=== PATIENT | female | born 1965 | race Caucasian/White ===

== ENCOUNTER 2025-09-27 12:46 | Emergency (ER) | payer OTHER, SELFPAY ==
[2025-09-27 13:05] VITALS: BP 165/95; PULSE 66; RESP 16; TEMP 36.3; O2SAT 100
--- NOTE | 2025-09-27 13:08 | XR_ITS ---
WS: [id number] Portable AP upright chest, 09/27/2025 Clinical Data: Hypertension Comparison: None. Findings: No nodules, masses or effusions are seen. The heart is normal. The pulmonary vascularity is not increased. No pneumonia or pneumothorax is seen. Monitor leads are on the chest wall. XR/XR chest 1V portable [id number] Impression: Negative chest.
--- NOTE | 2025-09-27 13:08 | ECG_ITS ---
[facility] Date: 2025-09-27 Pat Name: Ilda Xiao Department: Room: Gender: Female [employer]ger: : 1965 Requested By: Dante Hatch Order Number: [id number] Reading MD: ELLA NAJERA Measurements Intervals Orr Rate: 61 P: 70 MN: 171 QRS: 74 QRSD: 73 T: 61 QT: 414 QTc: 419 Interpretive Statements SINUS RHYTHM SEPTAL MYOCARDIAL INFARCTION , OF INDETERMINATE AGE [40+ ms Q WAVE IN V1/V2] No previous ECG available for comparison Electronically Signed On 09-28-2025 11:57:07 DATA PROCESSING CONSULTANT by ELLA NAJERA [id number]
--- NOTE | 2025-09-27 13:08 | W.ED.GENADLT ---
HPI - General Adult General: Chief complaint: General Medical Stated complaint: high bp Time Seen by Provider: 09/27/25 13:07 History of Present Illness: 60-year-old female presents emergency room complaint of elevated blood pressure with home monitoring intermittently for the last 2 weeks. She has been out of her blood pressure medications for over a month. No known history of coronary artery disease. She recently moved here and has not been able to establish with anyone she is trying get established at the [place] they are directed here for refill of medications today Associated symptoms: Deny chest pain, dyspnea or rash Related Data Home Medications ?Medication ?Instructions ?Recorded ?Confirmed buspirone 10 mg tablet 10 mg PO BID 09/27/25 09/27/25 venlafaxine 37.5 mg 37.5 mg PO DAILY 09/27/25 09/27/25 capsule,extended release 24 hr (Effexor XR) Previous Rx's ?Medication ?Instructions ?Recorded lisinopril 10 mg tablet 10 mg PO DAILY #30 tabs 09/27/25 Allergies Allergy/AdvReac Type Severity Reaction Status Date / Time codeine Allergy Unknown Verified 09/27/25 13:07 Penicillins Allergy Unknown Verified 09/27/25 13:07 Sulfa (Sulfonamide Allergy Unknown Verified 09/27/25 13:07 Antibiotics) Review of Systems Const: Denies: fever(s) or chills Card: Denies: chest pain Resp: Denies: dyspnea GI: Denies: abdominal pain : Denies: dysuria, urinary frequency or urinary urgency Musc: Denies: neck pain or back pain Skin/Breast: Denies: rash Physical Exam Const: GENERAL APPEARANCE: cooperative ORIENTATION/CONSCIOUSNESS: Yes awake, Yes oriented to person, Yes oriented to place and Yes oriented to time HENMT: COMMON NORMALS: normocephalic, atraumatic and hearing grossly normal bilaterally HEAD & SCALP: normocephalic and atraumatic Resp: COMMON NORMALS: normal respiratory effort, No retractions, No use of accessory muscles and clear to auscultation bilaterally AUSCULTATION: clear to auscultation bilaterally Cardio: COMMON NORMALS: regular rate, regular rhythm and No murmurs present (Cardio) RATE: regular rate RHYTHM: regular rhythm GI: COMMON NORMALS: Soft to palpation and No hepatosplenomegaly present AUSCULTATION: Yes normoactive bowel sounds PALPATION: Yes Soft to palpation, No Tenderness to palpation present (GI), No Guarding due to palpation present (GI) and Yes No hepatosplenomegaly present Extremity: COMMON NORMALS: normal to inspection, capillary refill normal, no clubbing, cyanosis or edema, no calf tenderness and no pedal edema Neuro: SENSORIUM/ORIENTATION: Yes oriented to person, Yes oriented to place and Yes oriented to time OTHER: No facial asymmetry no ataxia strength equal bilaterally no focal neurologic deficits Skin: COMMON NORMALS: no rashes or lesions noted GENERAL SKIN EXAM: no rashes or lesions noted Course Vital Signs: Vital signs: Vital Signs Temperature 97.3 F L 09/27/25 13:05 Pulse Rate 71 09/27/25 15:07 Respiratory Rate 18 09/27/25 15:07 Blood Pressure 158/98 09/27/25 15:07 Pulse Oximetry 97 09/27/25 15:07 Oxygen Delivery Me thod Room Air 09/27/25 15:07 MDM - General Adult Medical Decision Making Medical decision making Social determinants: None I reviewed the patient's medical record. I reviewed the patient's current home meds. Alternate historians: None Differential diagnosis: Essential hypertension versus hypertensive urgency Lab Review: CBC and CMP no significant abnormalities Imaging:Chest x-ray no acute infiltrates no effusions no increased pulmonary vasculature Assessment of risk Level of risk: Moderate Hospitalization considerations: May require hospitalization blood pressure did not respond to medications in the department or has significant abnormal labs Reexamination: Stable improved Assessment and plan: Discharge patient home on lisinopril 10 mg daily discussed with patient she likely will need further medication should follow-up with her doctor as soon as she is able to reevaluate and adjust dosage as appropriate return emergency room for any further problems Lab Data 09/27/25 13:14 09/27/25 13:14 Radiology Impressions Chest X-Ray 09/27/25 13:08 Impression: Negative chest. Laboratory Results WBC 4.83 10^3/uL (3.29-11.43) 09/27/25 13:14 RBC 4.11 10^6/uL (3.85-5.65) 09/27/25 13:14 Hgb 13.40 g/dL (11.27-16.99) 09/27/25 13:14 Hct 39.2 % (36-47) 09/27/25 13:14 MCV 95.4 fl (85-98) 09/27/25 13:14 MCH 32.6 pg (27-33) 09/27/25 13:14 MCHC 34.2 g/dL (30-55) 09/27/25 13:14 RDW 11.9 % (12.1-15.1) L 09/27/25 13:14 Plt Count 247 10^3/cmm (157-399) 09/27/25 13:14 MPV 11.0 fL (7.4-10.4) H 09/27/25 13:14 Neut % (Auto) 57.0 % 09/27/25 13:14 Lymph % (Auto) 33.1 % 09/27/25 13:14 Dane % (Auto) 7.7 % 09/27/25 13:14 Eos % (Auto) 1.4 % 09/27/25 13:14 Baso % (Auto) 0.6 % 09/27/25 13:14 Neut # (Auto) 2.75 10^3/uL (1.8-7.7) 09/27/25 13:14 Lymph # (Auto) 1.6 10^3/uL (0.8-4.8) 09/27/25 13:14 Dane # (Auto) 0.4 10^3/uL (0.2-0.9) 09/27/25 13:14 Eos # (Auto) 0.1 10^3/uL (0.0-0.8) 09/27/25 13:14 Baso # (Auto) 0.0 10^3/uL (0.0-0.1) 09/27/25 13:14 Nucleated RBC % (auto) 0 % 09/27/25 13:14 Nucleated RBCs # 0.0 /100WBC 09/27/25 13:14 Sodium 139 mmol/L (136-145) 09/27/25 13:14 Potassium 4.0 mmol/L (3.5-5.1) 09/27/25 13:14 Chloride 101 mmol/L (98-107) 09/27/25 13:14 Carbon Dioxide 27 mmol/L (22-29) 09/27/25 13:14 Anion Gap 15.0 (5-19) 09/27/25 13:14 BUN 10 mg/dL (6-20) 09/27/25 13:14 Creatinine 0.6 mg/dL (0.5-0.9) 09/27/25 13:14 GFR Calculation 102.7 mL/min (90-130) 09/27/25 13:14 Glucose 95 mg/dL (65-115) 09/27/25 13:14 Calculated Osmolality 287 mOsm/kg (285-295) 09/27/25 13:14 Calcium 9.1 mg/dL (8.5-10.5) 09/27/25 13:14 Total Bilirubin 0.9 mg/dL (0.15-1.2) 09/27/25 13:14 AST 25 U/L (0-32) 09/27/25 13:14 ALT 17 U/L (0-33) 09/27/25 13:14 Alkaline Phosphatase 92 U/L (35-105) 09/27/25 13:14 Total Protein 7.2 g/dL (6.6-8.7) 09/27/25 13:14 Albumin 4.4 g/dL (3.5-5.2) 09/27/25 13:14 Globulin 2.8 g/dL (1.3-4.6) 09/27/25 13:14 All radiology interpretation(s) finalized by discharge EKG Data EKG 1: I personally reviewed and interpreted this EKG as follows: Interpretation: EKG 09/27/2025 1304 sinus rhythm rate of 61. [address]Tc [address] No [address] changes noted. Mildly peaked T waves noted. No EKG available for comparison. Computer generated interpretation: Chest X-Ray 09/27/25 13:08 Impression: Negative chest. Discharge Plan Discharge Patient Disposition: Home Clinical Impression: Hypertension Condition: Stable Prescriptions: New lisinopril 10 mg tablet 10 mg PO DAILY Qty: 30 0RF No Action venlafaxine [Effexor XR] 37.5 mg Capsule,Extended Release 24hr 37.5 mg PO DAILY buspirone 10 mg Tablet 10 mg PO BID Discharge Orders: Discharge ED (Routine); Ordered 09/27/25 Ordered By: Dante Herrera Discharge Diet: Usual diet Discharge Activity: Resume usual activity Patient Instructions: Opioid Safety, Pain Management, Patient Portal & Rolando Instructions Activity Restrictions/Additional Instructions: Thank you for choosing [facility] for your healthcare needs today. It is very important that you follow up as instructed or that you return to the Emergency Department should you have concerns or if your condition changes or worsens in any way. Emergency department visits are focused on emergent conditions, in some cases you may require further evaluation on an outpatient basis. You were seen in the emergency room with complaints of elevated blood pressure. Your laboratory test not show significant abnormality and your kidney function was normal. Will restart your lisinopril recommend that you restart at 10 mg daily. You will likely need further adjustment to your medications to achieve control your blood pressure you should follow-up with your primary care doctor within the next week. (Please note that included in your discharge packet is information concerning opioid safety and pain management. This information is given to all patients were discharged from the ER regardless of their discharge diagnosis or the medicines they usually take or are prescribed.) Print Language: Malay Coding Level of Care Code ED Policy Director for Tomasa Bautista
[2025-09-27 13:32] LABS: Hematocrit 39.2 % (36-47); Hemoglobin 13.40 g/dL (11.27-16.99); Mean Corpuscular HGB Conc 34.2 g/dL (30-55); Mean Corpuscular Hemoglobin 32.6 pg (27-33); Mean Corpuscular Volume 95.4 fl (85-98); Nucleated Red Blood Cells % 0 %; Platelet Count 247 10^3/cmm (157-399); Red Blood Count 4.11 10^6/uL (3.85-5.65); White Blood Count 4.83 10^3/uL (3.29-11.43)
[2025-09-27] MEDS: hyDRALAzine 20 mg/mL INJ 1 mL 5 MG IVP (13:33)
[2025-09-27 13:37] VITALS: BP 184/96; PULSE 65; RESP 18; O2SAT 98
[2025-09-27 13:46] LABS: Alanine Aminotransferase 17 U/L (0-33); Albumin Level 4.4 g/dL (3.5-5.2); Alkaline Phosphatase 92 U/L (35-105); Anion Gap 15.0 (5-19); Aspartate Amino Transferase 25 U/L (0-32); Blood Urea Nitrogen 10 mg/dL (6-20); Calcium 9.1 mg/dL (8.5-10.5); Carbon Dioxide 27 mmol/L (22-29); Chloride 101 mmol/L (98-107); Globulin 2.8 g/dL (1.3-4.6); Glucose 95 mg/dL (65-115); Osmolality Calculated 287 mOsm/kg (285-295); Potassium 4.0 mmol/L (3.5-5.1); Sodium 139 mmol/L (136-145); Total Protein 7.2 g/dL (6.6-8.7)
[2025-09-27 14:37] VITALS: BP 141/104; PULSE 67; RESP 18; O2SAT 98
[2025-09-27 14:52] VITALS: BP 167/93; PULSE 70; RESP 18; O2SAT 97
[2025-09-27 15:07] VITALS: BP 158/98; PULSE 71; RESP 18; O2SAT 97
== END 2025-09-27 15:40 | disposition home or self-care (01) ==
PROVIDERS: Emergency Provider Family Medicine
DX: I10 Essential (primary) hypertension (principal)
CPT/HCPCS: 36415; 71045; 80053; 85025; 93005; 96374; 96375; 99285; J0360; J9999